=== PATIENT | male | born 1990 | race Two or more races ===

== ENCOUNTER 2017-03-09 12:21 | Inpatient (IN) | payer BC ==
[2017-03-09] VITALS (12 sets, daily range): BP systolic 104–143; BP diastolic 50–83; PULSE 68–116; RESP 16–38; Ht 170.2 cm; Wt 146.4 kg
[~2017-03-09] VITALS: Ht 170.2 cm; Wt 146.4 kg
[~2017-03-09 12:21] MED LIST: BUPIVACAINE 0.25%/EPI (SDV) 30 ML INJ INJ ONE; LIDOCAINE 1% (MPF) 30 ML INJ INJ ONE
[2017-03-09] MEDS ORDERED: no medications (12:58)
[2017-03-09] MEDS ORDERED: ONDANSETRON 4 MG INJ IV PRN ×2 (14:30→20:00)
[2017-03-09] MEDS ORDERED: morphine 10 MG INJ IM PRN (14:30)
[2017-03-09] MEDS: DEXTROSE 5%-0.9% NACL 1,000 ML IV SCH ×2 (14:47→22:20)
--- NOTE | 2017-03-09 17:35 | QN ---
Documentation Comment [id number] BENSON DIETRICH MD March 09, 2017 17:35
[2017-03-09] MEDS: CIPROFLOXACIN 400MG/D5W 200 ML IVPB SCH (18:49)
[2017-03-09] MEDS ORDERED: ROCURONIUM 50 MG INJ ONE ×2 (19:02→20:28)
[2017-03-09] MEDS ORDERED: SUCCINYLCHOLINE CHLORIDE 100 MG/5 ML SYG IV ONE (19:02)
[2017-03-09] MEDS ORDERED: PROPOFOL 40 ML ONE (19:02)
[2017-03-09] MEDS ORDERED: FENTAnyl 50 MCG/ML VIAL ONE (19:02)
[2017-03-09] MEDS ORDERED: ROPIVACAINE 0.5 % 30 ML VIAL ONE (19:02)
[2017-03-09] MEDS ORDERED: MIDAZOLAM 1 MG/ML 2 ML INJ ONE (19:02)
--- NOTE | 2017-03-09 19:45 | HP ---
DATE OF ADMISSION: 03/09/2017 HISTORY OF PRESENT ILLNESS: The patient with no significant past medical history, went to [facility] with abdominal pain, noted to have acute appendicitis. The patient's blood pressure 153/ 86, patient's temperature 36.8. Patient's because of the capitation to this hospital was transferre d here for further management. The patient denies any nausea or vomiting at this point. The patien t is going to be seen by Dr. Juan Fair. PAST MEDICAL HISTORY: Negative for diabetes, hypertension. ALLERGIES: PENICILLIN. SOCIAL HISTORY: Negative. MEDICATION HISTORY: Listed as omeprazole. The patient received clindamycin and Cipro at the other hospital. LABORATORY DATA: Done show WBC 13.9, hematocrit 45.1. The patient had a urinalysis that is negativ e. REVIEW OF SYSTEMS: HEENT: Unremarkable. RESPIRATORY: Unremarkable. CARDIOVASCULAR: Unremarkable. ABDOMEN: As mentioned above. EXTREMITIES: Unremarkable. GENITOURINARY: Unremarkable. MUSCULOSKELETAL: Unremarkable. PHYSICAL EXAMINATION: GENERAL: The patient is an overweight male, awake, alert. VITAL SIGNS: Stable. HEAD: Atraumatic, normocephalic. Pupils equal, reactive to light. NECK: Supple. No JVD. LUNGS: Clear. CARDIOVASCULAR: S1, S2 normal. ABDOMEN: Soft, nontender. Bowel sounds are positive. CENTRAL NERVOUS SYSTEM: The patient has bowel sounds positive, nontender. EXTREMITIES: No cyanosis, clubbing, edema. CENTRAL NERVOUS SYSTEM: The patient is awake, alert, no focal deficit. LABORATORY DATA: As mentioned above. IMPRESSION: 1. Acute appendicitis. 2. Leukocytosis. 3. Obesity. PLAN: To keep him n.p.o., IV fluid, antibiotic, pain medication, surgical consultation. SCDs. Ord ers were done. Dictated By: BENSON DIETRICH MD BS/NTS Conf#: [id number] DID#: [id number]
[2017-03-09] MEDS ORDERED: EPHEDrine SULFATE 50 MG/5 ML SYG IV PRN (20:00)
[2017-03-09] MEDS ORDERED: LABETALOL HCL 20MG INJ IV PRN (20:00)
[2017-03-09] MEDS ORDERED: METOCLOPRAMIDE 10 MG INJ IV PRN (20:00)
[2017-03-09] MEDS ORDERED: hydrALAzine 20 MG INJ IV PRN (20:00)
[2017-03-09] MEDS ORDERED: DIPHENHYDRAMINE 50 MG INJ IV PRN (20:00)
[2017-03-09] MEDS ORDERED: HYDROmorphONE (0.2 MG/ML) 10ML SYG IV PRN ×3 (20:00)
[2017-03-09] MEDS ORDERED: MEPERIDINE 25 MG INJ IV PRN (20:00)
[2017-03-09] MEDS ORDERED: FENTAnyl 50 MCG/ML VIAL IV PRN ×3 (20:00)
[2017-03-09] MEDS ORDERED: morphine (1 MG/ML) 10ML SYRINGE IV PRN ×3 (20:00)
[2017-03-09] MEDS ORDERED: ONDANSETRON 4 MG INJ ONE (20:29)
[2017-03-09] MEDS ORDERED: KETOROLAC 30 MG INJ ONE (20:29)
[2017-03-09] MEDS ORDERED: DEXAMETHASONE 4 MG/ML 1 ML INJ ONE (20:29)
[2017-03-09] MEDS ORDERED: GLYCOPYRROLATE 0.4 MG INJ ONE (20:29)
[2017-03-09] MEDS ORDERED: METOCLOPRAMIDE 10 MG INJ ONE (20:29)
[2017-03-09] MEDS ORDERED: NEOSTIGMINE 3 MG/3 ML SYRINGE ONE (20:29)
[2017-03-09] MEDS ORDERED: ALBUTEROL 0.083% (NEB) 2.5 MG/3 ML AMP ONE (21:00)
--- NOTE | 2017-03-09 21:23 | OPR ---
Date/Time of Note Date/Time of Note DATE: 03/09/17 TIME: 21:21 Operative Report Procedure Date: March 09, 2017 Procedure Description Preoperative Diagnosis 1. Acute appendicitis 2. Morbid obesity, BMI 51 Postoperative Diagnosis 1. Acute appendicitis 2. Morbid obesity, BMI 51 Operation Performed 1. Laparoscopic appendectomy 2. [place] anesthetic injection, [id number] 3. Laparoscopic guided bilateral transversus abdominis plane block Surgeon: JENNIE MICHAEL MD Anesthesia: general (Plus local plus regional) Anesthesiologist: Justin Hurst MD Estimated Blood Loss: 5 ml's Specimens: Appendix Tubes/Drains None Complications: None Pt Condition Post Procedure: stable Disposition: PACU Indications: Per consult note. Risks include but are not limited to bleeding, infection, abscess, seroma, leak , damage to intestines or any intra-abdominal/intrapelvic structures, hernia formation, chronic pain, need for re-operations or further surgeries, NV, stroke , PE, DVT, pneumonia, organ failures, or even . Procedure Note: Patient was brought into the operating room, placed supine on the operating table, SCDs were placed, left arm was tucked, all pressure points were well- padded, preoperative antibiotics administered, and after induction of anesthesia , he was prepped and draped in usual sterile fashion, and timeout was performed. Incision was made supraumbilically and the Veress needle was safely place into the abdomen. After negative sip test, abdomen was insufflated to 15 mmHg with CO2. At this point Veress was removed and the 5 mm blunt trocar was placed into the abdomen. Laparoscopy was performed and no injuries were identified using a 5 mm 30 scope. Under direct visualization another 5 mm port was placed and left lower quadrant and 12 mm port and suprapubic region avoiding the bladder. All incision sites were injected with quarter percent Marcaine with 1% lidocaine with epi. Bilateral transversus abdominis plane block was performed under laparoscopic visualization to aid with pain control intra-and postoperatively. Patient was placed in Trendelenburg and right side up. The appendix was found to be inflamed. There was murky fluid around the appendix. This was immediately suctioned out. The base was transected using Endo DEON white load automatic 35 mm stapler just on the cecum. The rodri were fired fully. The mesoappendix was transected with another white load stapler. Hemostasis was fully obtained. The appendix was placed in an Endo Catch bag and removed through the suprapubic port site. That fascia was closed with Endo Close and 0 Vicryl in a [id number] manner avoiding the bladder. Ports and CO2 were removed under direct visualization, wounds were fully irrigated, and skin was closed in subcuticular fashion using 4-0 Monocryl. Dermabond was applied. All counts were correct and the end of the operation 2. Patient was extubated and transferred to recovery room in stable condition. JENNIE MICHAEL MD March 09, 2017 21:23
[2017-03-09] MEDS ORDERED: ALBUTEROL 0.083% (NEB) 2.5 MG/3 ML AMP HHN ONE (21:30)
[2017-03-09] MEDS ORDERED: HYDROmorphONE 1 MG/ML SYG IV PRN (22:00)
[2017-03-09] MEDS ORDERED: HYDROCODONE/APAP (5/325) TAB PO PRN ×2 (22:00)
[2017-03-09] MEDS: metroNIDAZOLE 500 MG/NS (PMX) 100 ML IVPB SCH (22:17)
[2017-03-09] MEDS ORDERED: VITAMIN A & D 5 GM OINT PACKET TOP ONE (22:18)
--- NOTE | 2017-03-10 04:21 | CONS ---
DATE OF ADMISSION: 03/09/2017 DATE OF CONSULTATION: 03/09/2017 TYPE OF CONSULTATION: Surgical. REFERRING PHYSICIAN: Marques Belcher MD CHIEF COMPLAINT: 1. Abdominal pain. 2. Acute appendicitis. 3. Leukocytosis. 4. Morbid obesity with BMI of 51. HISTORY OF PRESENT ILLNESS: Jag Méndez is a 27-year-old male, morbidly obese, who presented wit h abdominal pain to [facility] associated with nausea but no vomiting. No fevers or chills . No chest pain or shortness of breath. No visual or neurologic changes. No dysuria. No change i n bowel habits. No cough. No seizure. No blood per mouth or rectum. No trauma or sick contacts. No previous history of the same. At the other emergency room, he was found to have leukocytosis of 13,[address] diagnosis of acute appendicitis. Due to insurance reason, he was transferred here for further care and treatment, and surgical consult is obtained for further evaluation. PAST MEDICAL HISTORY: 1. Morbid obesity with BMI of 51. 2. Acute abdominal pain secondary to acute appendicitis. 3. Leukocytosis. 4. Anxiety history. PAST SURGICAL HISTORY: Denies. MEDICATIONS: Denies. ALLERGIES: PENICILLIN. SOCIAL HISTORY: 4 beers per month. No tobacco or recreational drugs. He is a hairdresser. FAMILY HISTORY: 1. Obesity. 2. Metabolic syndrome, father. REVIEW OF SYSTEMS: A 12-point review of systems negative unless mentioned in the HPI. PHYSICAL EXAMINATION: VITAL SIGNS: Temperature is 98.9, pulse 80s, blood pressure 125/79. GENERAL: No acute distress, comfortable, morbidly obese. HEENT: Pupils equal, reactive. No scleral icterus. Mucous membranes are moist. NECK: Supple, no JVD. PULMONARY: Respiratory effort. HEART: S1, S2 present. ABDOMEN: Soft, minimally tender in her right lower quadrant. No rebound, no guarding, not rigid. EXTREMITIES: No edema. VASCULAR: Cap refill less than 2 seconds. NEUROLOGIC: Alert, oriented, moves all 4 extremities grossly. LYMPHATICS: No inguinal, cervical lymphadenopathy. LABORATORY AND RADIOGRAPHIC DATA: As per chart. ASSESSMENT AND PLAN: Mr. Jag Méndez is a 27-year-old male who presented with 1. Abdominal pain secondary to acute appendicitis, questionable perforation. Continue antibiotics, and we will proceed with appendectomy as discussed with the patient and mom. 2. Morbid obesity with BMI of 51. The patient is highly encouraged to optimize his diet and exerci se to improve his overall health status. 3. Leukocytosis secondary to #1. Treatment as above. 4. Anxiety history. Continue medical optimization. Thank you very much for consulting me in this patient's care. Dictated By: JENNIE BAKER/MADI Conf#: [id number] DID#: [id number]
[2017-03-10] MEDS ORDERED: PANTOPRAZOLE 40 MG INJ IV SCH (06:00)
[2017-03-10 06:12] LABS: ADD SCAN DIFF NO
[2017-03-10 06:20] LABS: ABNORMAL IP MESSAGE 1; BASOPHILS % 0.1 % (0.0-2.0); HEMATOCRIT 41.9 % (42.0-52.0); HEMOGLOBIN 13.6 g/dl (14.0-18.0); LYMPHOCYTES # 0.6 10^3/ul (0.8-2.9); LYMPHOCYTES % 5.9 % (15.0-51.0); MEAN CORPUSCULAR HEMOGLOBIN 29.7 pg (29.0-33.0); MEAN CORPUSCULAR HGB CONC 32.5 g/dl (32.0-37.0); MEAN CORPUSCULAR VOLUME 91.5 fl (82.0-101.0); MEAN PLATELET VOLUME 10.4 fl (7.4-10.4); MONOCYTE # 0.3 10^3/ul (0.3-0.9); MONOCYTES % 2.8 % (0.0-11.0); NEUTROPHIL # 8.6 10^3/ul (1.6-7.5); NEUTROPHILS % 90.9 % (39.0-77.0); PLATELET COUNT 242 10^3/UL (140-415); RED BLOOD COUNT 4.58 10^6/ul (4.70-6.10); RED CELL DISTRIBUTION WIDTH 12.5 % (11.5-14.5); WHITE BLOOD COUNT 9.5 10^3/ul (4.8-10.8)
[2017-03-10] MEDS: metroNIDAZOLE 500 MG/NS (PMX) 100 ML IVPB SCH ×2 (06:26→13:48)
[2017-03-10] MEDS ORDERED: ENOXAPARIN 40 MG/0.4 ML SYG SC SCH (07:00)
[2017-03-10 07:31] LABS: ALBUMIN 3.9 g/dl (3.3-4.9); ALBUMIN/GLOBULIN RATIO 1.14; BILIRUBIN,INDIRECT 0.5 mg/dl (0-1.1); BILIRUBIN,TOTAL 0.5 mg/dl (0.2-1.3); CALCIUM 9.2 mg/dl (8.4-10.2); CREATININE 0.73 mg/dl (0.61-1.24); POTASSIUM 4.7 mmol/L (3.5-5.1); TOTAL PROTEIN 7.3 g/dl (6.1-8.1)
[2017-03-10 07:43] VITALS: BP 114/61; RESP 20
[2017-03-10] MEDS: CIPROFLOXACIN 400MG/D5W 200 ML IVPB SCH (09:09)
[2017-03-10] MEDS: DEXTROSE 5%-0.9% NACL 1,000 ML IV SCH ×2 (10:30→11:49)
--- NOTE | 2017-03-10 18:49 | PDOCDIS ---
Discharge Instructions CONDITION Patient Condition: Stable HOME CARE INSTRUCTIONS: Special Diet: REGULAR ACTIVITY: Activity Restrictions: Slowly Increase Activity FOLLOW UP/APPOINTMENTS Appointments f/u own pcp [address] fox 1 wk BENSON DIETRICH MD March 10, 2017 18:49
[2017-03-10] MEDS ORDERED: ACET500C5 PO (18:50)
--- NOTE | 2017-03-10 19:19 | PN ---
Date/Time of Note Date/Time of Note DATE: 03/10/17 TIME: 19:16 Assessment/Plan Lines/Catheters IV Catheter Type (from [facility]): Peripheral IV Gallardo in Place (from [facility]): No Assessment/Plan Chief Complaint/Hosp Course 1. Abdominal pain secondary to acute appendicitis s/p lap appy -diet as tolerated -oob/ambulate -ice pack 2. Morbid obesity with BMI of 51. The patient is highly encouraged to optimize his diet and exercise to improve his overall health status. 3. Leukocytosis secondary to #1. Improved 4. Anxiety history. Continue medical optimization. Thank you Problems: Subjective 24 Hr Interval Summary Min pain. No f/c. No cp/sob. No cough. No bermudez/dizzy/visual or neurological changes. No dysuria. Diet tolerating. Bowel function. Exam/Review of Systems Vital Signs Vitals Vital Signs Date Time Temp Pulse Resp B/P Pulse Ox O2 Delivery O2 Flow Rate FiO2 03/10/17 07:43 98.6 82 20 114/61 95 03/09/17 21:43 Room Air 03/09/17 21:24 3.0 Intake and Output 03/09/17 03/09/17 03/10/17 15:00 23:00 07:00 Intake Total 1400 ml 1300 ml Output Total 10 ml 800 ml Balance 1390 ml 500 ml Exam Free Text/Dictation GENERAL: No acute distress, comfortable, morbidly obese. HEENT: Pupils equal, reactive. No scleral icterus. Mucous membranes are moist. NECK: Supple, no JVD. PULMONARY: Respiratory effort. HEART: S1, S2 present. ABDOMEN: Soft, minimally tender. No rebound, no guarding, not rigid. EXTREMITIES: No edema. VASCULAR: Cap refill less than 2 seconds. NEUROLOGIC: Alert, oriented, moves all 4 extremities grossly. LYMPHATICS: No inguinal, cervical lymphadenopathy. Results Result Diagram: 03/10/1711 03/10/17 0511 JENNIE MICHAEL MD March 10, 2017 19:19
--- NOTE | 2017-03-12 13:42 | QN ---
Documentation Comment [id number] done 142 pm BENSON DIETRICH MD March 12, 2017 13:42
--- NOTE | 2017-03-12 14:21 | DS ---
DATE OF ADMISSION: 03/09/2017 DATE OF DISCHARGE: 03/10/2017 HOSPITAL COURSE: Patient was admitted with abdominal pain, noted to have acute appendicitis and was seen by Dr. Juan Fair. Underwent laparoscopic appendectomy. Postop course was stable. The patie nt's hematocrit was 41.9. DISCHARGE DIAGNOSIS: Acute appendicitis status post laparoscopic appendectomy. PLAN: Patient to continue bowel care and stool softener and Tylenol. Follow with PCP and Dr. Juan chambers as an outpatient. The patient is stable at the time of discharge. Dictated By: BENSON DIETRICH MD BS/NTS Conf#: [id number] DID#: [id number]
== END 2017-03-10 19:37 | disposition home or self-care (01) | DRG 342 ==
LOC: PP2 12:21
PROVIDERS: ADMIT Internal Medicine Nephrology; ATTEND Internal Medicine Nephrology
PROC: 0DTJ4ZZ Resection of Appendix, Percutaneous Endoscopic Approach (ICD-10-PCS; principal; 2017-03-09 18:00)
DX: K35.80 Unspecified acute appendicitis (principal); Z68.43 Body mass index [BMI] 50.0-59.9, adult; E66.01 Morbid (severe) obesity due to excess calories; D72.829 Elevated white blood cell count, unspecified; F41.9 Anxiety disorder, unspecified
CPT/HCPCS: 80053; 85025; 88304; 94664; C9113; J0330; J0744; J1100; J1650; J1885; J2250; J2405; J2710; J2765; J2795; J3010; J7042